=== PATIENT | female | born 1995 | race Caucasian/White ===

== ENCOUNTER 2021-05-16 15:44 | Inpatient (IN) | payer OTHER ==
[~2021-05-16] VITALS: Ht 160 cm; Wt 72.6 kg
== END 2021-05-18 13:16 | disposition home or self-care (01) | DRG 343 ==
LOC: ER 15:44 → SURH 23:22 → SURG 23:22 → SURH 05-17 16:39
PROVIDERS: ADMIT Surgery; ATTEND Surgery
PROC: 0DTJ4ZZ Resection of Appendix, Percutaneous Endoscopic Approach (ICD-10-PCS; principal; 2021-05-17 10:30)
DX: K35.30 Acute appendicitis with localized peritonitis, without perforation or gangrene (principal); N83.201 Unspecified ovarian cyst, right side